=== PATIENT | male | born 1935 | race African-American/Black ===

== ENCOUNTER 2017-11-29 09:18 | Emergency (ER) | payer OTHER, MEDICARE ==
[~2017-11-29] VITALS: Ht 172.7 cm; Wt 100.0 kg
[2017-11-29] MEDS ORDERED: VERA120C3 PO (09:39)
[2017-11-29] MEDS ORDERED: TIOT4MIS2 PO (09:39)
[2017-11-29] MEDS ORDERED: ALBU8HFA PO (09:39)
[2017-11-29] MEDS ORDERED: ASPI81 PO (09:39)
[2017-11-29] MEDS ORDERED: METO25 PO (09:39)
[2017-11-29] MEDS ORDERED: TERA10CA4 PO (09:39)
[2017-11-29] MEDS ORDERED: NPH,100V SQ ×2 (09:39)
[2017-11-29] MEDS ORDERED: GLIP10 PO (09:39)
[2017-11-29] MEDS ORDERED: SIMV-259 PO (09:39)
[2017-11-29] MEDS ORDERED: ALLO100T PO (09:39)
[2017-11-29] MEDS ORDERED: FINA5TAB41 PO (09:39)
[2017-11-29 09:58] LABS: GLUCOSE,POINT OF CARE 95 MG/DL (70-110)
[2017-11-29 10:32] LABS: BASOPHILS % (AUTO) 0.6 % (0.0-2.0); EOSINOPHILS % (AUTO) 0.4 % (1.0-6.0); HEMATOCRIT 34.7 % (41-53); LYMPHOCYTES # (AUTO) 1.2 K/uL (1.0-4.8); LYMPHOCYTES % (AUTO) 15.5 % (22.0-44.0); MEAN CORPUSCULAR HEMOGLOBIN 25.2 pg (26.0-34.0); MEAN CORPUSCULAR HGB CONC 31.8 G/dL (31.0-37.0); MEAN CORPUSCULAR VOLUME 79 fL (80-100); MONOCYTES # (AUTO) 0.7 K/uL (0.1-1.0); MONOCYTES % (AUTO) 8.8 % (2.0-9.0); NEUTROPHILS # (AUTO) 5.6 K/uL (1.8-7.7); NEUTROPHILS % (AUTO) 74.7 % (40.0-70.0); PLATELET COUNT (AUTO) 272 K/uL (150-450); RED BLOOD CELL COUNT(AUTO) 4.39 MIL/uL (4.50-5.90); RED CELL DISTRIBUTION WIDTH 18.5 % (11.5-14.5)
[2017-11-29 10:39] LABS: CALCIUM, TOTAL 8.1 mg/dL (8.8-10.5); CREATININE 1.62 mg/dL (0.60-1.30); POTASSIUM 3.9 mmol/L (3.5-5.1)
[2017-11-29 10:45] LABS: ALBUMIN 3.1 g/dL (3.4-5.0); BILIRUBIN,TOTAL 0.2 mg/dL (0.1-1.0); TOTAL PROTEIN, SERUM 6.9 g/dL (6.4-8.2)
[2017-11-29 11:28] LABS: GLUCOSE,POINT OF CARE 116 MG/DL (70-110)
[2017-11-29 11:35] VITALS: BP 179/78
== END 2017-11-29 12:02 | disposition home or self-care (01) ==
LOC: EMS 09:21
DX: E11.65 Type 2 diabetes mellitus with hyperglycemia (principal); I10 Essential (primary) hypertension; J45.909 Unspecified asthma, uncomplicated; E78.00 Pure hypercholesterolemia, unspecified; M19.90 Unspecified osteoarthritis, unspecified site; Z88.6 Allergy status to analgesic agent; Z91.030 Bee allergy status; Z79.82 Long term (current) use of aspirin
CPT/HCPCS: 93005; 93970; 99285